=== PATIENT | female | born 1985 | race Caucasian/White ===

== ENCOUNTER 2021-04-29 00:13 | Emergency (ER) | payer OTHER ==
[2021-04-29 00:40] VITALS: BP 123/82; PULSE 76; TEMP 98.1; BMI 28.5
[2021-04-29] MEDS ORDERED: ACETAMINOPHEN 1000 MG/100 ML VIAL (NON FORMULARY) IVPB ONE (00:41)
[2021-04-29] MEDS ORDERED: SODIUM CHLORIDE 0.9% 500 ML INFUS.BAG IV ONE (00:41)
[2021-04-29 02:05] LABS: BASO % 0.4 % (0-2.0); EOS % 2.2 % (0-4.5); HEMATOCRIT 38.4 % (32.4-45.2); HEMOGLOBIN 13.3 GM/dL (10.7-15.3); LYMPH % 33.6 % (8-40); MCH 30.9 pg (25.7-33.7); MCHC 34.6 g/dl (32.0-36.0); MEAN CELL VOLUME 89.4 fl (80-96); MEAN PLT VOLUME 8.1 fl (7.5-11.1); NEUT % 55.8 % (42.8-82.8); PLATELET COUNT 321 10^3/uL (134-434); RDW 12.5 % (11.6-15.6); WHITE BLOOD COUNT 10.9 K/mm3 (4.0-10.0)
[2021-04-29 02:09] LABS: URINE APPEARANCE CLEAR; URINE BILIRUBIN NEGATIVE (NEGATIVE); URINE COLOR YELLOW; URINE GLUCOSE (UA) NEGATIVE (NEGATIVE); URINE KETONE NEGATIVE (NEGATIVE); URINE LEUK ESTERASE NEGATIVE (NEGATIVE); URINE NITRITE NEGATIVE (NEGATIVE); URINE PROTEIN NEGATIVE (NEGATIVE); URINE UROBILINOGEN 0.2 mg/dL (0.2-1.0)
[2021-04-29 02:11] LABS: HCG,QUALITATIVE URINE Negative
[2021-04-29 02:24] LABS: ALBUMIN 3.6 g/dl (3.4-5.0); CALCIUM 8.8 mg/dL (8.5-10.1)
[2021-04-29 02:30] LABS: CREATININE 0.6 mg/dL (0.55-1.3); TOT PROT 7.1 g/dl (6.4-8.2)
[2021-04-29 03:09] LABS: BILIRUBIN,TOTAL 0.2 mg/dL (0.2-1)
== END 2021-04-29 03:21 | disposition home or self-care (01) ==
LOC: JER 00:13
PROC: 3E033NZ Introduction of Analgesics, Hypnotics, Sedatives into Peripheral Vein, Percutaneous Approach (ICD-10-PCS; principal; 2021-04-29)
DX: R10.32 Left lower quadrant pain (principal); D25.9 Leiomyoma of uterus, unspecified
CPT/HCPCS: 36415; 76830-TC; 80053; 81003; 84703; 85025; 87086; 99284-25; J0131

== ENCOUNTER 2021-12-10 06:19 | Emergency (ER) | payer OTHER ==
[2021-12-10 06:44] VITALS: BP 112/84; PULSE 119; BMI 28.6
[2021-12-10] MEDS ORDERED: DEXAMETHASONE LIQUID 0.5 MG/5 ML PO ONE (07:21)
[2021-12-10] MEDS ORDERED: ACETAMINOPHEN 500 MG TABLET (FP) PO ONE (07:22)
[2021-12-10] MEDS ORDERED: guaiFENesin/CODEINE 10 ML UNIT-DOSE CUPS PO ONE (07:22)
[2021-12-10] MEDS ORDERED: ACETAMINOPHEN 500 MG TABLET (FP) ONE (07:44)
[2021-12-10] MEDS ORDERED: DEXAMETHASONE SOD PHOSPHATE 10 MG/1 ML VIAL ONE (07:45)
[2021-12-10] MEDS ORDERED: guaiFENesin/D-METHORPHAN HB 10 ML UNIT-DOSE CUPS ONE (07:46)
[2021-12-10] MEDS ORDERED: LIDOCAINE 5% TOPICAL PATCH TP ONE (08:03)
[2021-12-10] MEDS ORDERED: LIDOCAINE 5% TOPICAL PATCH ONE (08:07)
[2021-12-10 08:33] LABS: THROAT:GRP A STREP NOT DETECTED (NOTDETECTED)
[2021-12-10 08:56] VITALS: TEMP 98.3
[2021-12-10] MEDS ORDERED: LIDOCAINE PATCH REMOVAL MC SCH (22:00)
== END 2021-12-10 08:56 | disposition home or self-care (01) ==
LOC: JER 06:19
DX: J09.X2 Influenza due to identified novel influenza A virus with other respiratory manifestations (principal)
CPT/HCPCS: 0241U-QW; 71046-TC-FY; 87651; 87807; 99284-25; C9803-CS; U0003; U0005

== ENCOUNTER 2022-08-06 03:00 | Emergency (ER) | payer OTHER ==
[2022-08-06 03:08] VITALS: BP 131/91; PULSE 105; RESP 18; TEMP 98; BMI 27.4
[2022-08-06] MEDS ORDERED: IBUPROFEN 600 MG TABLET (FP) PO ONE ×2 (03:43→03:45)
[2022-08-06 04:16] LABS: THROAT:GRP A STREP NOT DETECTED (NOTDETECTED)
== END 2022-08-06 03:46 | disposition home or self-care (01) ==
LOC: JER 03:00
DX: B34.9 Viral infection, unspecified (principal)
CPT/HCPCS: 0241U-QW; 87651; 99283-25

== ENCOUNTER 2022-08-16 11:11 | Emergency (ER) | payer OTHER ==
[2022-08-16 11:29] VITALS: BP 118/79; PULSE 81; RESP 18; TEMP 98.8; BMI 27.4
[2022-08-16] MEDS ORDERED: MECLIZINE HCL 25 MG TABLET (FP) PO ONE (12:53)
[2022-08-16] MEDS ORDERED: ONDANSETRON *ODT* 4 MG TABLET SL ONE (12:53)
[2022-08-16] MEDS ORDERED: MECLIZINE HCL 25 MG TABLET (FP) ONE (13:15)
[2022-08-16] MEDS ORDERED: ONDANSETRON *ODT* 4 MG TABLET ONE (13:15)
[2022-08-16 16:04] LABS: PH,URINE 5.5 (5.0-8.0); URINE APPEARANCE CLEAR; URINE BILIRUBIN NEGATIVE (NEGATIVE); URINE COLOR YELLOW; URINE GLUCOSE (UA) NEGATIVE (NEGATIVE); URINE KETONE 4+ (NEGATIVE); URINE LEUK ESTERASE NEGATIVE (NEGATIVE); URINE NITRITE NEGATIVE (NEGATIVE); URINE PROTEIN TRACE (NEGATIVE)
== END 2022-08-16 17:25 | disposition home or self-care (01) ==
LOC: JERFT 11:11 → JER 11:11 → JERFT 17:25
DX: O21.9 Vomiting of pregnancy, unspecified (principal); Z3A.08 8 weeks gestation of pregnancy
CPT/HCPCS: 36415; 76830-TC; 81003; 84702; 84703; 87077; 87086; 87186; 99284-25; Q0162

== ENCOUNTER 2022-08-21 18:12 | Emergency (ER) | payer OTHER ==
[2022-08-21 18:30] VITALS: BP 117/72; PULSE 95; RESP 20; TEMP 98.9; BMI 27.4
[2022-08-21] MEDS ORDERED: SODIUM CHLORIDE 1,000 ML IV STA (20:13)
[2022-08-21] MEDS ORDERED: ACETAMINOPHEN 500 MG TABLET (FP) PO ONE (20:13)
[2022-08-21] MEDS ORDERED: ACETAMINOPHEN 500 MG TABLET (FP) ONE (20:19)
[2022-08-21] MEDS ORDERED: MECLIZINE HCL 25 MG TABLET (FP) PO ONE (20:23)
[2022-08-21] MEDS ORDERED: MECLIZINE HCL 25 MG TABLET (FP) ONE (20:29)
[2022-08-21 21:25] LABS: BASO % 0.7 % (0-2.0); EOS % 1.1 % (0-4.5); HEMATOCRIT 40.3 % (32.4-45.2); HEMOGLOBIN 13.6 GM/dL (10.7-15.3); LYMPH % 26.5 % (8-40); MCHC 33.7 g/dl (32.0-36.0); MONO % 8.2 % (3.8-10.2); NEUT % 63.5 % (42.8-82.8); PLATELET COUNT 391 10^3/uL (134-434); RBC 4.53 M/mm3 (3.60-5.2); RDW 12.6 % (11.6-15.6); WHITE BLOOD COUNT 9.1 K/mm3 (4.0-10.0)
[2022-08-21 21:37] LABS: CHLORIDE 102 mmol/L (98-107); SODIUM 136 mmol/L (136-145)
[2022-08-21 21:40] LABS: CALCIUM 8.9 mg/dL (8.5-10.1)
[2022-08-21 21:41] LABS: ALBUMIN 3.3 g/dl (3.4-5.0); ANION GAP 11 MMOL/L (8-16); BLOOD UREA NITROGEN 6.1 mg/dL (7-18); CO2 23 mmol/L (21-32); GLUCOSE,RANDOM 85 mg/dL (74-106)
[2022-08-21 21:44] LABS: CREATININE 0.4 mg/dL (0.55-1.3); SGOT/AST 32 U/L (15-37); SGPT/ALT 24 U/L (13-61)
[2022-08-21 21:45] LABS: BILIRUBIN,TOTAL 0.4 mg/dL (0.2-1); TOT PROT 7.1 g/dl (6.4-8.2)
[2022-08-21 21:47] LABS: ALK PHOS 58 U/L (45-117)
[2022-08-21 22:02] LABS: PH,URINE 5.5 (5.0-8.0); URINE APPEARANCE CLEAR; URINE BILIRUBIN NEGATIVE (NEGATIVE); URINE COLOR YELLOW; URINE GLUCOSE (UA) NEGATIVE (NEGATIVE); URINE KETONE TRACE (NEGATIVE); URINE LEUK ESTERASE NEGATIVE (NEGATIVE); URINE NITRITE NEGATIVE (NEGATIVE); URINE PROTEIN NEGATIVE (NEGATIVE); URINE UROBILINOGEN 0.2 mg/dL (0.2-1.0)
== END 2022-08-21 22:35 | disposition home or self-care (01) ==
LOC: JER 18:12
PROC: 3E0337Z Introduction of Electrolytic and Water Balance Substance into Peripheral Vein, Percutaneous Approach (ICD-10-PCS; principal; 2022-08-21)
DX: O26.891 Other specified pregnancy related conditions, first trimester (principal); R42 Dizziness and giddiness; Z3A.09 9 weeks gestation of pregnancy
CPT/HCPCS: 36415; 80053; 81003; 84484; 85025; 87086; 93005; 93010; 99284-25

== ENCOUNTER 2022-09-23 19:33 | Emergency (ER) | payer OTHER ==
[2022-09-23 19:45] VITALS: BMI 30.2
[2022-09-23] MEDS ORDERED: SODIUM CHLORIDE 0.9% 500 ML INFUS.BAG IV ONE (21:32)
[2022-09-23 21:43] LABS: BASO % 0.5 % (0-2.0); EOS % 0.2 % (0-4.5); HEMATOCRIT 40.8 % (32.4-45.2); HEMOGLOBIN 13.8 GM/dL (10.7-15.3); LYMPH % 8.4 % (8-40); MCH 30.1 pg (25.7-33.7); MCHC 33.9 g/dl (32.0-36.0); MEAN CELL VOLUME 88.7 fl (80-96); MONO % 3.9 % (3.8-10.2); PLATELET COUNT 335 10^3/uL (134-434); RDW 12.9 % (11.6-15.6); WHITE BLOOD COUNT 10.2 K/mm3 (4.0-10.0)
[2022-09-23 22:02] LABS: CALCIUM 8.7 mg/dL (8.5-10.1)
[2022-09-23 22:06] LABS: CREATININE 0.4 mg/dL (0.55-1.3)
[2022-09-23 22:08] LABS: BILIRUBIN,TOTAL 0.4 mg/dL (0.2-1)
[2022-09-24] MEDS ORDERED: SODIUM CHLORIDE 0.9% 500 ML INFUS.BAG IV ONE (00:07)
[2022-09-24 00:23] VITALS: BP 115/66; PULSE 104; RESP 15; TEMP 99.3
[2022-09-24 00:47] LABS: CREATININE 0.3 mg/dL (0.55-1.3)
[2022-09-24 01:14] LABS: EPI CELLS >36 /uL (0-25.1); HYALINE CASTS 1 /uL (0-3.1); URINE APPEARANCE CLEAR; URINE BACTERIA 121 /uL (0-1359); URINE BILIRUBIN NEGATIVE (NEGATIVE); URINE COLOR YELLOW; URINE GLUCOSE (UA) NEGATIVE (NEGATIVE); URINE KETONE 3+ (NEGATIVE); URINE LEUK ESTERASE TRACE (NEGATIVE); URINE NITRITE NEGATIVE (NEGATIVE); URINE PROTEIN NEGATIVE (NEGATIVE); URINE RBC 5 /uL (0-23.9); URINE WBC 10 /uL (0-25.8)
== END 2022-09-24 01:29 | disposition home or self-care (01) ==
LOC: JER 19:33
DX: O21.9 Vomiting of pregnancy, unspecified (principal); R19.7 Diarrhea, unspecified; Z3A.14 14 weeks gestation of pregnancy
CPT/HCPCS: 0241U-QW; 36415; 80048; 80053; 81003; 83735; 85025; 87086; 99284-25

== ENCOUNTER 2022-10-25 11:56 | Emergency (ER) | payer OTHER ==
[2022-10-25 12:08] VITALS: BP 101/57; PULSE 93; RESP 18; TEMP 98; BMI 30.4
[2022-10-25] MEDS ORDERED: SODIUM CHLORIDE FOR INHALATION 3 ML VIAL.NEB IH ONE (12:41)
[2022-10-25] MEDS ORDERED: ACETAMINOPHEN 325 MG TABLET (FP) PO ONE (12:42)
[2022-10-25] MEDS ORDERED: ACETAMINOPHEN 325 MG TABLET (FP) ONE (12:49)
[2022-10-25 13:26] LABS: THROAT:GRP A STREP NOT DETECTED (NOTDETECTED)
== END 2022-10-25 14:19 | disposition home or self-care (01) ==
LOC: JERFT 11:56
DX: O98.512 Other viral diseases complicating pregnancy, second trimester (principal); R05.1 Acute cough; R09.81 Nasal congestion; J02.9 Acute pharyngitis, unspecified; Z3A.18 18 weeks gestation of pregnancy; Z20.822 Contact with and (suspected) exposure to COVID-19
CPT/HCPCS: 0241U-QW; 87651; 99283-25

== ENCOUNTER 2024-12-01 10:35 | Emergency (ER) | payer OTHER ==
[2024-12-01 10:42] VITALS: RESP 20; TEMP 98.5; BMI 28.6
[2024-12-01 12:11] LABS: ABSOLUTE IMMATURE GRANULOCYTES 0.01 x10^3/uL (0.0-0.031); BASOPHILS # 0.03 x10^3/uL (0.01-0.08); EOSINOPHIL % 2.8 % (0.7-5.8); EOSINOPHILS # 0.14 x10^3/uL (0.04-0.36); HEMATOCRIT 41.9 % (34.1-44.9); HEMOGLOBIN 13.9 g/dL (11.2-15.7); MCHC 33.2 g/dl (32.2-35.5); MEAN CELL VOLUME 90.5 fl (79.4-94.8); MEAN PLT VOLUME 9.7 fl (9.4-12.3); MONOCYTE # 0.43 x10^3/uL (0.24-0.86); MONOCYTE % 8.4 % (4.7-12.5); PLATELET COUNT 317 x10^3/uL (182-369); RDW 11.5 % (12.1-16.8)
[2024-12-01] MEDS ORDERED: MAG HYDROX/AL HYDROX/SIMETH 30 ML UNIT-DOSE CUP ONE (12:11)
[2024-12-01] MEDS ORDERED: FAMOTIDINE 20 MG/50 ML IVPB 20 MG/50 ML MG IVPB ONE (12:12)
[2024-12-01] MEDS: MAG HYDROX/AL HYDROX/SIMETH 30 ML UNIT-DOSE CUP PO ONE (12:30)
[2024-12-01] MEDS: FAMOTIDINE 20 MG/50 ML IVPB 20 MG/50 ML MG IVPB ONE (12:30)
[2024-12-01] MEDS: LACTATED RINGERS SOLUTION 1,000 ML/1,000 ML INFUS.BAG IV STA (12:30)
[2024-12-01 12:31] LABS: POTASSIUM 3.6 mmol/L (3.5-5.1)
[2024-12-01 12:33] LABS: CALCIUM 8.9 mg/dL (8.5-10.1)
[2024-12-01 12:34] LABS: ALBUMIN 3.8 g/dl (3.4-5.0); BLOOD UREA NITROGEN 8.9 mg/dL (7-18); MAGNESIUM 2.2 mg/dL (1.8-2.4)
[2024-12-01 12:42] LABS: CREATININE 0.4 mg/dL (0.55-1.3)
[2024-12-01 12:44] LABS: BILIRUBIN,TOTAL 0.3 mg/dL (0.2-1); TOT PROT 7.3 g/dl (6.4-8.2)
[2024-12-01 13:21] LABS: PH,URINE 5.5 (5.0-8.0); URINE APPEARANCE CLOUDY; URINE BILIRUBIN NEGATIVE (NEGATIVE); URINE COLOR YELLOW; URINE GLUCOSE (UA) NEGATIVE (NEGATIVE); URINE KETONE TRACE (NEGATIVE); URINE LEUK ESTERASE NEGATIVE (NEGATIVE); URINE NITRITE NEGATIVE (NEGATIVE); URINE PROTEIN TRACE (NEGATIVE); URINE UROBILINOGEN 0.2 mg/dL (0.2-1.0)
[2024-12-01 13:26] LABS: HCV DIAGNOSTIC IN-HOUSE W/RFLX NON-REACTIVE (NONREACTIVE)
[2024-12-01 13:27] LABS: HIV INTERPRETATION NEGATIVE (NEGATIVE)
[2024-12-01] MEDS ORDERED: LIDOCAINE VISCOUS 2% ORAL/TOP 15 ML UNIT-DOSE CUP ONE (14:01)
[2024-12-01] MEDS: LIDOCAINE VISCOUS 2% ORAL/TOP 15 ML UNIT-DOSE CUP MM ONE (14:08)
[2024-12-01] MEDS ORDERED: ACETAMINOPHEN 500 MG TABLET (FP) ONE (14:10)
[2024-12-01] MEDS ORDERED: ONDANSETRON 4 MG/2 ML VIAL ONE (14:23)
[2024-12-01] MEDS: ONDANSETRON 4 MG/2 ML VIAL IVPUSH ONE (14:32)
[2024-12-01 15:23] VITALS: BP 98/60; PULSE 77
== END 2024-12-01 16:10 | disposition home or self-care (01) ==
LOC: JER 10:35
PROC: 3E033GC Introduction of Other Therapeutic Substance into Peripheral Vein, Percutaneous Approach (ICD-10-PCS; principal; 2024-12-01)
PROC: 3E033GC Introduction of Other Therapeutic Substance into Peripheral Vein, Percutaneous Approach (ICD-10-PCS; 2024-12-01)
DX: K52.9 Noninfective gastroenteritis and colitis, unspecified (principal); R11.2 Nausea with vomiting, unspecified; R53.81 Other malaise; R10.13 Epigastric pain; M79.661 Pain in right lower leg; M79.662 Pain in left lower leg
CPT/HCPCS: 0241U-QW; 36415; 74177-TC; 80053; 81003; 82272; 82438; 83690; 83735; 84302; 84999; 85025; 86803; 87045; 87046; 87086; 87205; 87389; 99285-25; Q9967